=== PATIENT | female | born 1960 ===

== ENCOUNTER 2025-06-26 10:47 | Emergency (ER) | payer BC, MEDICAID ==
[~2025-06-26] VITALS: Ht 152.4 cm; Wt 43.0 kg
[2025-06-26 11:07] VITALS: TEMP 98.6
[2025-06-26 12:21] LABS: APPEARANCE,URINE CLEAR (CLEAR); GLUCOSE, URINE (UA) NEGATIVE (NEGATIVE); LEUKOCYTE ESTERASE ,URINE NEGATIVE (NEGATIVE); NITRATE,URINE NEGATIVE (NEGATIVE); OCCULT BLOOD,URINE MODERATE (NEGATIVE); SPECIFIC GRAVITIY, URINE 1.018 (1.003-1.030)
[2025-06-26 13:03] LABS: CALCIUM OXALATE CRYSTALS,UR Moderate /LPF (None Seen)
[2025-06-26 14:45] VITALS: BP 123/68; PULSE 75; RESP 17; O2SAT 98
== END 2025-06-26 15:11 | disposition home or self-care (01) ==
LOC: EMS 10:54
DX: N20.9 Urinary calculus, unspecified (principal); E78.00 Pure hypercholesterolemia, unspecified; R10.A2 Flank pain, left side
CPT/HCPCS: 74176; 81001; 99284; Z7502